=== PATIENT | male | born 1995 | race Hispanic/Latino ===

== ENCOUNTER 2021-01-23 05:53 | Emergency (ER) | payer OTHER, SELFPAY ==
[2021-01-23 06:52] LABS: #Basophils 0.1 thou/uL (0.0-0.2); #Eosinphils 0.4 thou/uL (0.0-0.7); #Lymphocytes 1.5 thou/uL (1.20-3.40); #Monocytes 0.4 thou/uL (0.11-0.59); #Neutrophils 3.4 thou/uL (1.40-6.50); %Basophils 1.2 % (0.0-1.0); %Eosinophils 6.7 % (0.0-10.0); %Lymphocytes 26.3 % (21.0-51.0); %Monocytes 6.2 % (0.0-10.0); %Neutrophils 59.5 % (42.0-75.0); Hemoglobin 15.5 g/dL (14.0-18.0); Mean Corpuscular HGB CONC 34.5 g/dL (32.0-36.0); Mean Corpuscular Hemoglobin 29.9 pg (27.0-31.0); Mean Corpuscular Volume 86.7 fL (78.0-98.0); Mean Platelet Volume 6.6 fL (7.4-10.4); Platelet Count 250 thou/uL (130-400); RBC Distribution Width 11.6 % (11.5-14.5); Red Blood Cell (RBC) Count 5.17 mill/uL (4.70-6.10); White Blood Cell (WBC) Count 5.7 thou/uL (4.8-10.8)
[2021-01-23 07:14] LABS: ALT (SGPT) 24 U/L (8-55); AST (SGOT) 25 U/L (5-34); Albumin 4.2 g/dL (3.5-5.0); Alcohol Less than 10 mg/dL (Less than 10); Alkaline Phosphatase 74 U/L (40-110); Anion Gap 11 mmol/L (10-20); BUN (Urea Nitrogen) 9 mg/dL (8.9-20.6); Bilirubin, Total 0.5 mg/dL (0.2-1.2); Calc. Creatinine Clearance 0 mL/min (70-130); Calcium 9.3 mg/dL (7.8-10.44); Carbon Dioxide 25 mmol/L (22-29); Chloride 106 mmol/L (98-107); Globulin 3.1 g/dL (2.4-3.5); Glucose 102 mg/dL (70-105); Potassium 3.7 mmol/L (3.5-5.1); Protein, Total 7.3 g/dL (6.0-8.3); Sodium 138 mmol/L (136-145)
[2021-01-23] MEDS ORDERED: Cyclobenzaprine 10 MG TAB ONE (09:17)
[2021-01-23] MEDS ORDERED: Ibuprofen 200 MG TAB ONE (09:17)
[2021-01-23] MEDS ORDERED: Iopamidol-370 76% 500 ML 1 ML ONE (09:48)
== END 2021-01-23 09:31 | disposition home or self-care (01) ==
LOC: ERS 05:53
DX: S50.01XA Contusion of right elbow, initial encounter (principal); S00.81XA Abrasion of other part of head, initial encounter; S20.311A Abrasion of right front wall of thorax, initial encounter; S40.811A Abrasion of right upper arm, initial encounter; S40.812A Abrasion of left upper arm, initial encounter; R07.89 Other chest pain; V83.5XXA Driver of special industrial vehicle injured in nontraffic accident, initial encounter
CPT/HCPCS: 36415; 70450; 71260; 72125; 74177; 80053; 80307; 83605; 85025; 93005; Q9967

== ENCOUNTER 2023-08-11 00:42 | Emergency (ER) | payer SELFPAY ==
[2023-08-11] MEDS ORDERED: Acetaminophen 500 MG TAB ONE (00:44)
[2023-08-11 01:42] LABS: Influenza A by NAA Not Detected (NotDetected); Influenza B by NAA Not Detected (NotDetected); SARS-CoV-2 NAA Rapid Test Not Detected (NotDetected)
[2023-08-11] MEDS ORDERED: Ibuprofen 200 MG TAB ONE (01:57)
== END 2023-08-11 02:15 | disposition home or self-care (01) ==
LOC: ERS 00:42
DX: J06.9 Acute upper respiratory infection, unspecified (principal)
CPT/HCPCS: 99283

== ENCOUNTER 2024-09-29 01:05 | Emergency (ER) | payer SELFPAY ==
[2024-09-29] MEDS ORDERED: Fluorescein Opthalmic Strip ONE (03:30)
[2024-09-29] MEDS ORDERED: Proparacaine 0.5% Opth 15 ML BOT ONE (03:30)
== END 2024-09-29 04:18 ==
LOC: ERS 01:05
DX: H10.9 Unspecified conjunctivitis (principal)
CPT/HCPCS: 99282